=== PATIENT | female | born 2005 | race Caucasian/White ===

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

== ENCOUNTER 2025-05-28 17:18 | Emergency (ER) | payer MEDICAID, OTHER ==
[~2025-05-28] VITALS: Ht 160 cm; Wt 64.5 kg
[2025-05-28 17:19] VITALS: TEMP 97.5
[2025-05-28] MEDS ORDERED: FAMO10TA50 PO (17:30)
[2025-05-28 17:57] LABS: BASO # 0.0 10^3/uL (0.0-0.2); BASO % 0.2 % (0.0-1.0); EOS # 0.0 10^3/uL (0.0-0.5); EOS % 0.0 % (0.0-3.0); LYMPH # 1.3 10^3/uL (1.5-5.0); LYMPH % 7.0 % (24.0-44.0); MONO # 0.6 10^3/uL (0.0-0.8); MONO % 3.1 % (2.0-8.0); NEUTROPHILS # 16.4 10^3/uL (1.5-8.5); NEUTROPHILS % 89.3 % (36.0-66.0); PLATELET COUNT, AUTOMATED 307 10^3/uL (150-450)
[2025-05-28 18:16] LABS: HCG, SERUM QUALITATIVE NEGATIVE (NEGATIVE)
[2025-05-28 18:18] LABS: ALT/SGPT 15 U/L (7.0-40); AST/SGOT 20 U/L (<34); CALCIUM LEVEL 9.3 MG/DL (8.5-10.1); CARBON DIOXIDE LEVEL 26 MMOL/L (20-31); CHLORIDE LEVEL 101 MMOL/L (98-107); CREATININE FOR GFR 0.80 MG/DL (0.55-1.30); GLOMERULAR FILTRATION RATE > 90.0 (>60); POTASSIUM SERUM 4.0 MMOL/L (3.5-5.1); SODIUM LEVEL 141 MMOL/L (136-145)
[2025-05-28] MEDS ORDERED: ISOVUE-370 76% 100 ML VIAL As Ordered ONE (18:28)
[2025-05-28 18:45] VITALS: BP 102/55
[2025-05-28] MEDS ORDERED: GI COCKTAIL 50 ML BTL(HYOSCYAMINE/MAALOX/LIDOCAINE VISCOUS)(1:3:1) PO ONE (19:45)
[2025-05-28] MEDS: MAALOX 30 ML SUSP *UDC PO ONE (20:20)
[2025-05-28] MEDS: HYOSCYAMINE SULFATE 0.125 MG SUBL TABLET SL ONE (20:21)
[2025-05-28] MEDS: LIDOCAINE VISCOUS 2% SOLN 15 ML UDC PO ONE (20:21)
[2025-05-28 22:18] VITALS: O2SAT 97
[2025-05-28 22:49] LABS: KETONE, URINE AUTO RFX 2+ mg/dL (NEGATIVE); LEUKOCYTE ESTERASE UR AUTO RFX NEGATIVE (NEGATIVE); NITRITE, URINE AUTO RFX NEGATIVE (NEGATIVE); RBC, URINE AUTO RFX 1 /HPF (0-3); SQUAM EPITHELIAL CELL UR AURFX 4 /HPF (0-6); WBC, URINE AUTO RFX 0 /HPF (0-3)
[2025-05-28] MEDS ORDERED: ONDA-282 PO (23:14)
== END 2025-05-28 23:47 | disposition home or self-care (01) ==
LOC: M ED 18:47
DX: R11.2 Nausea with vomiting, unspecified (principal); R19.7 Diarrhea, unspecified; K21.9 Gastro-esophageal reflux disease without esophagitis; J45.909 Unspecified asthma, uncomplicated; F90.9 Attention-deficit hyperactivity disorder, unspecified type; F41.9 Anxiety disorder, unspecified; F32.9 Major depressive disorder, single episode, unspecified; F17.290 Nicotine dependence, other tobacco product, uncomplicated; F12.10 Cannabis abuse, uncomplicated; Z79.899 Other long term (current) drug therapy; Z88.0 Allergy status to penicillin
CPT/HCPCS: 74177; 80048; 80076; 81001; 83690; 84703; 85025; 87486; 87581; 87633; 87798; 93005; 93041; 99285; Q9967

== ENCOUNTER → 2025-05-31 | Outpatient (REF) | payer OTHER ==
[~2025-05-31] MED LIST changes: +FAMO10TA50 PO; +ONDA-282 PO
== END ==
LOC: M LAB REF 16:34
PROVIDERS: ATTEND Emergency Medicine
DX: R19.7 Diarrhea, unspecified (principal)